=== PATIENT | female | born 1930 | race Caucasian/White ===

== ENCOUNTER 2019-07-14 13:47 | Outpatient (CLI) | payer MEDICARE, BC ==
[~2019-07-14 13:47] MED LIST: AMLO1CAP71 PO; ASPI-1264 PO; CARV-50 PO; CHOL400T57 CORPAK; FURO40TA4 PO; HYDR200T84 PO; LOSA25TA96 PO; OMEG1CAP PO; OMEP-84 PO; POTA20PA40 PO; SERT25TA PO; ZOC40T PO
== END 2019-07-14 23:59 | disposition home or self-care (01) ==
LOC: VAS 13:47
PROVIDERS: ATTEND Specialist
DX: M71.21 Synovial cyst of popliteal space [Baker], right knee (principal)
CPT/HCPCS: 93971